=== PATIENT | female | born 1990 | race Caucasian/White ===

== ENCOUNTER 2021-11-15 18:55 | Emergency (ER) | payer OTHER ==
[~2021-11-15] VITALS: Ht 167.6 cm; Wt 62.0 kg
[2021-11-15 19:19] VITALS: BP 146/100
--- NOTE | 2021-11-15 19:25 | PHYS DOC ---
General Adult HPI: HPI: Patient is a 31-year-old A0 female at 39 weeks gestation who presents with abdominal pain status post mechanical fall at home. Patient states that she tripped over one of her young children at home, falling straight onto her belly. She is scheduled to be induced in 2 days and has been diagnosed with preeclam psia in this . Patient states she has felt baby move since falling. She denies vaginal bleeding, passage of fluids or contractions. Patient has no other complaints at this time. (OLGA MCKAY) Review of Systems: Review of Systems: ROS negative or noncontributory except as mentioned in HPI. (OLGA MCKAY) Physical Exam: PE: Constitutional: Well developed, well nourished, no acute distress, non-toxic appearance. HENT: Normocephalic, atraumatic, bilateral external ears normal, nose normal. Eyes: EOMI, conjunctiva normal, no discharge. Neck: Normal range of motion, no stridor. Abdomen: Gravid abdomen, bowel sounds normal, soft, no tenderness, no masses, no pulsatile masses. Skin: Warm, dry, no erythema, no rash, no abrasions, no lacerations. Extremities: No cyanosis, no clubbing, ROM intact, no edema. Neurologic: Alert and oriented x4, steady and symmetrical upright gait, normal motor function, normal sensory function, no focal deficits noted. (OLGA MCKAY) Current Patient Data: Vital Signs: VS - Last 72 Hours, by Label Date Time Temp Pulse Resp B/P (MAP) Pulse Ox O2 Delivery O2 Flow Rate FiO2 11/15/21 19:19 99 18 146/100 (115) 99 heart rate 155bpm (OLGA MCKAY) Heart Score: C/O Chest Pain: No (OLGA MCKAY) Course & Med Decision Making: Course & Med Decision Making Pertinent Labs and Imaging studies reviewed. (See chart for details) Patient is a 31-year-old A0 female at 39 weeks gestation with diagnosed preeclampsia who presents with abdominal pain status post mechanical fall. Mom has felt baby move since falling and heart tones are 155 bpm. [facility] OB was consulted, who advised that she present to their OB triage under ER to ER transfer. Dr. Lisa Ugarte is the accepting physician at the OB triage. Patient is advised that if traveling by personal vehicle, she should leave this emergency department and drive straight to [facility]. Patient understands and is agreeable to transfer plan. (OLGA MCKAY) Dragon Disclaimer: Dragenedelia Disclaimer: This electronic medical record was generated, in whole or in part, using a voice recognition dictation system. (OLGA MCKAY) Attending Co-Sign The patient was seen and interviewed as well as examined at the bedside. The chart was reviewed. The case was discussed. Agree with the plan of care. (LILLY DAILEY DO) Departure Departure: Impression: Primary Impression: Abdominal pain during in third trimester Disposition: 02 SHORT TERM HOSPITAL Condition: STABLE Referrals: PCP,NO (PCP) OLGA MKCAY Nov 15, 2021 19:25 LILLY DAILEY DO Nov 16, 2021 18:24
== END 2021-11-15 19:38 | disposition short-term general hospital (02) ==
LOC: ER 18:55
DX: O26.893 Other specified pregnancy related conditions, third trimester (principal); R10.9 Unspecified abdominal pain; Z3A.39 39 weeks gestation of pregnancy; W18.09XA Striking against other object with subsequent fall, initial encounter; Y93.89 Activity, other specified; Y92.89 Other specified places as the place of occurrence of the external cause; Y99.8 Other external cause status
CPT/HCPCS: 99285